=== PATIENT | male | born 1980 | race Caucasian/White ===

== ENCOUNTER 2020-12-21 09:04 | Day surgery (SDC) | payer MEDICAID, SELFPAY ==
[2020-12-15 14:26] VITALS: BMI 24.4
[2020-12-21 09:29] LABS: Coronavirus 19, PCR Not Detected (NotDetected); Influenza A, PCR Not Detected (NotDetected); Influenza B, PCR Not Detected (NotDetected)
[2020-12-21 09:39] VITALS: BP 127/81; PULSE 56; RESP 20; TEMP 36.6; O2SAT 100
[2020-12-21 11:14] VITALS: BP 139/96; PULSE 61; RESP 18; TEMP 36.3; O2SAT 99
[2020-12-21 11:25] VITALS: BP 139/96; PULSE 61; RESP 18; O2SAT 99
--- NOTE | 2020-12-21 12:27 | [facility].OPNOTE ---
Date of procedure: 12/21/20 Pre-op Diagnosis:: Sterilization Post-op Diagnosis:: Sterilization Procedure performed:: Vasectomy Surgeon:: Boby Juarez MD Anesthesia: local Estimated blood loss (mL): 5 Clinical Note:: 40-year-old white male presents for vasectomy today. Previous counseling session in the office has been performed. We went over the postoperative instructions prior to the procedure today. Operative findings:: Physical examination showed a tight scrotum, testicles normal size and shape Operative note:: Patient taken to the vasectomy suite after informed consent was obtained. On the stretcher he was prepped and draped in the standard surgical fashion. Physical examination revealed a tight retracted scrotum but testicles were within normal limits. The right vas was palpated and brought up to the midline raphae. Local anesthetic was placed under the skin at the midline raphae and around the vas. An incision was made in the midline raphae and a tenaculum was used to grasp the right vas and it was brought up through the incision. The procedure was made difficult by the tightness of the scrotum. The basal sheath was incised and the vas proper was dissected free from its surrounding adventitial layers. 1 clip was placed distally and 2 proximally. A 1 cm segment of the vas was excised and hemostasis achieved in the basal lumen was cauterized. The right vas was dropped back into the right hemiscrotum and the left vas was brought up through the same incision. Local anesthetic was placed in and around the vas and the identical procedure was performed as on the right side. Hemostasis achieved and a 3-0 chromic was placed in a horizontal mattress incision and a compression dressing applied. The patient tolerated the procedure well no complications. Discharged to recovery room stable condition. Condition: stable Disposition: same day Specimens:: Vas segments were not sent Complications:: None
== END 2020-12-21 11:27 | disposition home or self-care (01) ==
PROVIDERS: Visit Provider Urology
PROC: (CPT 55250; principal; 2020-12-21 09:30)
DX: Z30.2 Encounter for sterilization (principal); Z79.899 Other long term (current) drug therapy
CPT/HCPCS: 55250; U0003